=== PATIENT | male | born 1950 | race Caucasian/White ===

== ENCOUNTER 2017-07-31 14:11 | Day surgery (SDC) | payer OTHER ==
[2017-07-31] MEDS ORDERED: TRIAMCINOLONE ACETONIDE 200 MG/5 ML MDV IM ONE (15:34)
[2017-07-31] MEDS ORDERED: IOPAMIDOL (ISOVUE-M 300) 15 ML VIAL ONE (15:34)
== END 2017-07-31 16:10 | disposition home or self-care (01) ==
LOC: FIMAGING 14:11
PROVIDERS: ATTEND Family Medicine
PROC: 3E0R33Z Introduction of Anti-inflammatory into Spinal Canal, Percutaneous Approach (ICD-10-PCS; principal; 2017-07-31)
PROC: 3E0R3BZ Introduction of Anesthetic Agent into Spinal Canal, Percutaneous Approach (ICD-10-PCS; principal; 2017-07-31)
DX: M54.17 Radiculopathy, lumbosacral region (principal)
CPT/HCPCS: J3301; Q9967

== ENCOUNTER → 2017-10-03 | Outpatient (CLI) | payer OTHER ==
[~2017-10-03] MED LIST: GADOBUTROL 10 ML VIAL IVP ONE
== END ==
LOC: FIMAGING 16:06
PROVIDERS: ATTEND Neurological Surgery
DX: M51.27 Other intervertebral disc displacement, lumbosacral region (principal)
CPT/HCPCS: 72158; A9585

== ENCOUNTER 2017-10-24 07:19 | Inpatient (IN) | payer OTHER ==
[~2017-10-24 07:19] MED LIST changes: -GADOBUTROL 10 ML VIAL IVP ONE; +TRANEXAMIC ACID 1,000 MG in NS (SYRINGE) 50 ML IV ONE
[2017-10-24] MEDS ORDERED: CHLORHEXIDINE GLUC HIBICLENS 118 ML BTL TP ONE (07:28)
[2017-10-24] MEDS ORDERED: BUPIVACAINE 0.25% 30 ML SDV ONE (07:28)
[2017-10-24] MEDS ORDERED: THROMBIN (BOVINE) 5,000 UNIT VIAL TP ONE (07:29)
[2017-10-24] MEDS ORDERED: BACITRACIN 50,000 UNITS/10 ML SYR IRR ONE (07:29)
[2017-10-24] MEDS ORDERED: morphINE PF 5 MG/10 ML INJ IT ONE (07:38)
[2017-10-24] MEDS ORDERED: fentaNYL 100 MCG/2 ML INJ IT ONE (07:38)
[2017-10-24] MEDS ORDERED: ceFAZolin 2 GM/SWFI 2 GM/20 ML SYR IVP ONE (07:38)
[2017-10-24] MEDS ORDERED: GABAPENTIN 300 MG CAP PO ONE (07:38)
[2017-10-24] MEDS ORDERED: ACETAMINOPHEN 500 MG TAB PO ONE (07:38)
[2017-10-24] MEDS ORDERED: LIDOCAINE 1% 2 ML INJ ID PRN (07:40)
[2017-10-24] MEDS ORDERED: LR 1,000 ML IV ONE (07:40)
--- NOTE | 2017-10-24 09:17 | PDHPUP ---
History & Physical Update H&P update statement: This history and physical update is based on an assessment of the patient which was completed after admission or registration (within 24 hours), but prior to the surgery/procedure. H&P update: H&P reviewed & patient examined, no change in patient's condition since H&P completed
[2017-10-24] MEDS ORDERED: fentaNYL 100 MCG/2 ML INJ ONE (09:31)
[2017-10-24] MEDS ORDERED: REMIFENTANIL HCL 1 MG VIAL ONE (09:31)
[2017-10-24] MEDS ORDERED: PROPOFOL/EMULSION 500 MG/50 ML BOTTLE IV ONE (09:32)
[2017-10-24] MEDS ORDERED: PROPOFOL 200 MG/20 ML VIAL ONE (09:32)
[2017-10-24] MEDS ORDERED: MIDAZOLAM 2 MG/2 ML VIAL IVP ONE (09:37)
--- NOTE | 2017-10-24 09:41 | PDANEPAE ---
ANE History of Present Illness L5-S1 TLIF ANE Past Medical History - Cardiovascular History Hx Hypertension: Yes Hx Arrhythmias: No Hx Chest Pain: No Hx Coronary Artery / Peripheral Vascular Disease: No Hx CHF / Valvular Disease: No Hx Palpitations: No - Pulmonary History Hx COPD: No Hx Asthma/Reactive Airway Disease: No Hx Recent Upper Respiratory Infection: No Hx Oxygen in Use at Home: No Hx Sleep Apnea: No Sleep Apnea Screening Result - Last Documented: Positive - Neurologic History Hx Cerebrovascular Accident: No Hx Seizures: No Hx Dementia: No - Endocrine History Hx Diabetes: Yes Endocrine History Comment: type 2 - Renal History Hx Renal Disorders: Yes Renal History Comment: stage 3 kidney disease - Liver History Hx Hepatic Disorders: No - Neurological & Psychiatric Hx Hx Neurological and Psychiatric Disorders: Yes Neurological / Psychiatric History Comment: neuropathy - Cancer History Hx Cancer: No - Congenital Disorder History Hx Congenital Disorders: No - GI History Hx Gastrointestinal Disorders: No - Other Health History Other Health History: left ear hearing loss - Chronic Pain History Chronic Pain: Yes (left leg, bilat hip across buttocks) - Surgical History Prior Surgeries: umbilical hernia 09/08. 09/26/17 microdiscectomy ANE Review of Systems Review of systems is: negative Review of Systems: - Exercise capacity METS (RN): 6 METS ANE Patient History - Allergies Allergies/Adverse Reactions: ciprofloxacin [From Cipro] Allergy (Verified 10/24/17 07:46) - Home Medications Home medications: home medication list seen and reviewed Home Medications: Atorvastatin Calcium [Lipitor 40 mg (*)] 40 mg PO HS 07/24/17 [Last Taken ] Fenofibrate,Micronized [Fenofibrate] 134 mg PO DAILY 07/24/17 [Last Taken ] Glimepiride [Amaryl 2 MG (*)] 2 mg PO BID PRN 07/24/17 [Last Taken 10/23/17] Lisinopril [Zestril 10 mg (*)] 10 mg PO HS 07/24/17 [Last Taken 10/20/17] metFORMIN HCL [Glucophage 1000 mg] 1,000 mg PO BIDMEAL 07/24/17 [Last Taken 08/11 12:00] Aspirin [Aspirin 81mg (*)] 81 mg PO DAILY 10/17/17 [Last Taken 10/13/17] Cholecalciferol Vit D3 [Vitamin D3 (*)] 1,000 units PO DAILY 10/17/17 [Last Taken 10/17/17] Cyanocobalamin [Vitamin B12 (*)] 1,000 mcg PO DAILY 10/17/17 [Last Taken ] Gabapentin [Neurontin 300 MG (*)] 300 mg PO HS 10/17/17 [Last Taken 10/23/17] Herbals/Supplements -Info Only 1 ea PO DAILY 10/17/17 [Last Taken 10/17/17] Methocarbamol [Robaxin 750 mg (*)] 750 mg PO DAILY PRN 10/17/17 [Last Taken 08/11 21:30] [place]-3 Fatty Acids [Fish Oil 1000 mg (*)] 1,000 mg PO DAILY 10/17/17 [Last Taken 10/17/17] oxyCODONE/APAP 5/325 [Percocet 5/325 (*)] 1 - 2 tab PO Q6HRS PRN 10/17/17 [Last Taken 10/24/17 04:30] - NPO status NPO Since - Liquids (Date): 10/23/17 NPO Since - Liquids (Time): 21:30 NPO Since - Solids (Date): 10/23/17 NPO Since - Solids (Time): 18:00 - Anes Hx Anes Hx: no prior problems - Smoking Hx Smoking Status: Never smoked - Alcohol Use Alcohol Use: None - Family Anes Hx Family Hx Anesthesia Complications: none ANE Labs/Vital Signs - Vital Signs Blood Pressure: 130/96 Heart Rate: 97 Respiratory Rate: 16 O2 Sat (%): 95 Height: 180.34 cm Weight: 79.379 kg ANE Physical Exam - Airway Neck exam: FROM Mallampati Score: Class 1 Mouth exam: normal dental/mouth exam - Pulmonary Pulmonary: no respiratory distress - Cardiovascular Cardiovascular: regular rate and rhythym - ASA Status ASA Status: III ANE Anesthesia Plan Anesthesia Plan: general endotracheal anesthesia Lines/Monitors: additional IV
[2017-10-24] MEDS ORDERED: ROCURONIUM 50 MG/5 ML VIAL ONE (11:08)
[2017-10-24] MEDS ORDERED: ONDANSETRON 4 MG/2 ML VIAL ONE (11:08)
[2017-10-24] MEDS ORDERED: LIDOCAINE 2% 100 MG/5 ML SYR ONE (11:08)
[2017-10-24] MEDS ORDERED: PHENYLEPHRINE 10 MG/ML SDV ONE (11:51)
[2017-10-24] MEDS ORDERED: epHEDrine SULFATE 10 MG/ML SYR ONE (11:51)
--- NOTE | 2017-10-24 12:12 | POSTANESTH ---
Post Anesthetic Evaluation Cardiovascular Status: Normal, Stable Respiratory Status: Normal, Stable Level of Consciousness/Mental Status: Can Participate in Eval Pain Control: Adequate, Prn Tx Ordered Nausea/Vomiting Control: Adequate, Prn Tx Ordered Complications Possibly Related to Anesthesia: None Noted
[2017-10-24] MEDS ORDERED: HYDROmorphONE/DILAUDID 2 MG/ML INJ ONE (12:26)
[2017-10-24] MEDS ORDERED: PROMETHAZINE HCL 25 MG/ML INJ IVP PRN (12:43)
[2017-10-24] MEDS ORDERED: HYDROCODONE/APAP 5/325 TAB PO PRN (12:43)
[2017-10-24] MEDS ORDERED: ACETAMINOPHEN 500 MG TAB PO PRN (12:43)
[2017-10-24] MEDS ORDERED: DIAZEPAM 5 MG/ML 1 ML SYR IVP PRN (12:43)
[2017-10-24] MEDS ORDERED: oxyCODONE IR 5 MG TAB PO PRN ×2 (12:43→12:56)
[2017-10-24] MEDS ORDERED: HYDROmorphONE/DILAUDID 2 MG/ML INJ IVP PRN (12:43)
[2017-10-24] MEDS ORDERED: LABETALOL HCL 5 MG/ML 20 ML MDV IVP PRN (12:43)
[2017-10-24] MEDS ORDERED: NALOXONE HCL 0.4 MG/ML INJ IVP PRN ×2 (12:43→12:56)
[2017-10-24] MEDS ORDERED: fentaNYL 100 MCG/2 ML INJ IVP PRN (12:43)
[2017-10-24] MEDS ORDERED: ONDANSETRON 4 MG/2 ML VIAL IVP PRN ×2 (12:43→12:56)
[2017-10-24] MEDS ORDERED: LR 500 ML IV PRN (12:43)
[2017-10-24] MEDS ORDERED: ONDANSETRON DISINTEGRATING 4 MG TAB PO PRN (12:56)
[2017-10-24] MEDS ORDERED: diphenhydrAMINE 25 MG CAP PO PRN (12:56)
[2017-10-24] MEDS ORDERED: morphINE PCA 30 MG/30 ML PCA IV PRN (12:56)
[2017-10-24] MEDS ORDERED: BISACODYL 10 MG SUPP PR PRN (12:56)
[2017-10-24] MEDS ORDERED: METHOCARBAMOL 750 MG TAB PO PRN (12:56)
[2017-10-24] MEDS ORDERED: MAGNESIUM HYDROXIDE 30 ML UDCUP PO PRN (12:56)
[2017-10-24] MEDS ORDERED: LACTULOSE 20 GM/30 ML UDCUP PO PRN (12:56)
[2017-10-24] MEDS ORDERED: NS W/ 20 KCl/L 1,000 ML IV SCH (13:00)
--- NOTE | 2017-10-24 13:07 | SOAPPROG ---
SOAP Progress Note Assessment/Plan: Assessment: 67 yo M sp L5/S1 TLIF Plan: stable PT/OT to 3N x-rays in am lovenox starts 10/25 please call with neuro changes 10/24/17 13:03 Subjective: + back pain, no leg pain. Objective: Vital Signs Temp Pulse Resp BP Pulse Ox 36.9 C 97 16 130/96 H 95 10/24/17 08:52 10/24/17 09:40 10/24/17 09:40 10/24/17 09:40 10/24/17 09:40 somnolent PERRL, EOMI 5/5 + light touch ICD10 Worksheet Patient Problems: Problems Problem Status Onset Fusion of spine of lumbar region Acute - ICD10 Problem Qualifiers (1) Fusion of spine of lumbar region
--- NOTE | 2017-10-24 13:28 | GOP ---
[f rep st] OPERATIVE REPORT DATE OF OPERATION: 10/24/2017 SURGEON: Guzman Manuel MD NEUROSURGEON: Guzman Manuel M.D. TRACK MOVING MACHINE OPERATOR: KANDICE Ruvalcaba. ANESTHESIA: General endotracheal. PREOPERATIVE DIAGNOSIS: 1. Recurrent left L5-S1 disk herniation with intractable low back pain and left greater than right lower extremity radicular symptoms. 2. Failed conservative care. Intractable pain. POSTOPERATIVE DIAGNOSIS: 1. Recurrent left L5-S1 disk herniation with intractable low back pain and left greater than right lower extremity radicular symptoms. 2. Failed conservative care. Intractable pain. PROCEDURE PERFORMED: 1. Mini open exposure for left-sided far lateral transfacet, transpedicular decompression at the L5-S1 level with L5-S1 posterior nonsegmental (pedicle screw) fixation and posterolateral fusion with local autograft, bone morphogenic protein and morselized allograft. 2. L5-S1 posterior/transforaminal lumbar interbody fusion with 2 structural PEEK interbody spacers, local autograft and bone morphogenic protein and morselized allograft. 3. Use of intraoperative microscopy, fluoroscopy and computer volumetric stereotactic navigation with intraoperative neurophysiologic testing. 4. Injection of intrathecal narcotic analgesics and subcutaneous and intramuscular local anesthesia for postoperative pain control. FINDINGS: ESTIMATED BLOOD LOSS: 75 cc. DESCRIPTION OF PROCEDURE: The patient was taken to the operating room and placed in the prone position on the Gurwinder table. The lumbosacral area was prepped and draped in a sterile fashion. After fluoroscopic localization of the correct levels, the subcutaneous and intramuscular tissues were infiltrated with local anesthesia. A midline linear incision was then created over the L5- S1 spinous processes. This was carried down to the fascial layer, which was then incised using monopolar electrocautery and carried in a subperiosteal plane along the spinous processes and lamina bilaterally. Intraoperative fluoroscopy was again utilized to verify the correct levels. Following this, a redo left-sided posterior hemilaminectomy defect was created along with a facetectomy for an extensive decompression of the L5 and S1 nerve roots. There was a very large free fragment disk herniation that was stuck to the dura and removed in piecemeal. There was end plate on some of the disk and it appeared that he completely blew out his L5-S1 disk and most of it was pressing against the thecal sac and L5 and S1 nerve roots. After an extensive decompression, the [employer] neuronavigational system was brought in and using computer volumetric stereotactic navigation, pedicle screws were placed bilaterally at L5 and S1. Each individual screw was tested neurophysiologically with monopolar electrostimulation and interpretation of the potentials by the surgeon. Rods were then placed and secured under distraction at which time a complete diskectomy was performed with preparation of the endplates and placement of 2 structural PEEK interbody spacers, local autograft and bone morphogenic protein and morselized allograft for an L5-S1 posterior/transforaminal lumbar interbody fusion. The screw and juliette system were then placed compression in order to facilitate bony union and to minimize the potential for posterior graft migration. 200 mcg of Duramorph along with 50 mcg of fentanyl were then injected intrathecally. The remaining lamina and facet joint on the right were extensively decorticated, and the residual local autograft along with bone morphogenic protein and morselized autograft were placed out laterally for posterolateral fusion at the L5-S1 level. After reverification of good position of the screws, rods and interbody spacers using biplanar fluoroscopy, a drain was placed. The subcutaneous and intramuscular tissues were reinfiltrated with local anesthesia. 200 mcg of Duramorph along with 50 mcg of fentanyl were injected intrathecally and the wound was closed in a layered fashion using interrupted Vicryl sutures followed by Steri-Strips on the skin. COMPLICATIONS: None. INDICATIONS FOR PROCEDURE: The patient is a 67-year-old male with intractable low back pain and left greater than right lower extremity radicular discomfort secondary to a recurrent disk herniation and severe disk space collapse and neural foraminal encroachment. He had a microdiskectomy recently and had excellent pain relief for a few days, but then reherniated with a very large disk fragment on MRI. He also has contralateral symptoms due to the disk space height collapse and neural foraminal encroachment and required extensive redo decompression and elevation of the disk height with interbody spacers and screws and rods. DISPOSITION: The patient is currently in the process of being repositioned for extubation. /[id number]/MODL MTDD
--- NOTE | 2017-10-24 14:53 | PDMN ---
Medical Necessity Medical necessity: Patient meets inpatient criteria per PA note and [facility] S-820 Lumbar Fusion - 3 days postop - (CPT 61045 / Medicare inpatient-only surgery.)
[2017-10-24] MEDS: ACETAMINOPHEN 500 MG TAB PO SCH ×2 (17:23→22:33)
[2017-10-24] MEDS: ceFAZolin 2 GM/SWFI 2 GM/20 ML SYR IVP SCH (17:23)
[2017-10-24] MEDS: GABAPENTIN 300 MG CAP PO SCH ×2 (17:24→22:33)
[2017-10-24] MEDS: POLYETHYLENE GLYCOL 3350 17 GM PKT PO SCH ×2 (17:25→20:55)
[2017-10-24] MEDS ORDERED: NON-FORMULARY NEW DRUG (Metformin Hcl [Glucophage 1000 Mg] 1,000 MG) PO SCH (18:00)
[2017-10-24] MEDS ORDERED: GLIMEPIRIDE 2 MG TAB PO PRN (18:00)
[2017-10-24] MEDS ORDERED: GLIMEPIRIDE 2 MG TAB PO SCH (18:45)
[2017-10-24] MEDS: FAMOTIDINE 20 MG TAB PO SCH (20:53)
[2017-10-24] MEDS: SENNOSIDES/DOCUSATE SODIUM TAB PO SCH (20:56)
[2017-10-24] MEDS ORDERED: LISINOPRIL 10 MG TAB PO SCH (21:00)
[2017-10-24] MEDS ORDERED: morphINE SR 30 MG TAB PO SCH (21:00)
[2017-10-24] MEDS ORDERED: ATORVASTATIN CALCIUM 40 MG TAB PO SCH (21:00)
[2017-10-25] MEDS: ceFAZolin 2 GM/SWFI 2 GM/20 ML SYR IVP SCH (01:46)
[2017-10-25 05:27] LABS: PLATELET COUNT 183 10^3/uL (150-400)
[2017-10-25] MEDS: GABAPENTIN 300 MG CAP PO SCH ×2 (05:42→14:44)
[2017-10-25] MEDS: ACETAMINOPHEN 500 MG TAB PO SCH ×2 (06:19→14:44)
[2017-10-25] MEDS ORDERED: ENOXAPARIN 40 MG/0.4 ML SYR SC SCH (09:00)
[2017-10-25] MEDS ORDERED: FENOFIBRATE MICRONIZED 134 MG PO SCH (09:00)
[2017-10-25] MEDS: FAMOTIDINE 20 MG TAB PO SCH (09:08)
[2017-10-25] MEDS: SENNOSIDES/DOCUSATE SODIUM TAB PO SCH (09:09)
[2017-10-25] MEDS: POLYETHYLENE GLYCOL 3350 17 GM PKT PO SCH ×2 (09:09→17:56)
--- NOTE | 2017-10-25 09:38 | NEUSURGPN ---
Assessment/Plan: Assessment: 67 yo M sp L5/S1 TLIF POD1 Plan: Continue NIDHI drain PT/OT Post op xrays pending DVT prophx: TEDs, SCDs, lovenox Optimize pain management please call with neuro changes Discussed with Dr. Bach Subjective: Back pain tolerable with medications, denies any new leg pain, numbness, tingling or weakness. - Physician Discussed Patient with : [facility] Physical Exam - Vitals, I&O, Labs I and O 10/24/17 10/25/17 10/26/17 05:59 05:59 05:59 Intake Total 1950 Output Total 515 50 Balance 1435 -50 Weight 79.379 kg Intake: Oral (ml) 650 IV Intake (ml) 1300 Output: Urine (ml) 300 Urinal 300 Estimated Blood Loss (ml) 120 NIDHI Drain Output (ml) 95 50 Left Back Gurwinder Glover 95 50 Other: Number of Voids Toilet 1 Bladder Scan Volume (ml) Toilet 224 Vital Signs Temp Pulse Resp BP Pulse Ox 36.4 C 98 16 98/59 L 95 10/25/17 07:59 10/25/17 07:59 10/25/17 07:59 10/25/17 07:59 10/25/17 07:59 Laboratory Results 10/25/17 04:19 10/25/17 04:19 ICD10 Worksheet Patient Problems: Problems Problem Status Onset Fusion of spine of lumbar region Acute
[2017-10-25] MEDS ORDERED: metFORMIN HCL 500 MG TAB PO SCH (09:45)
--- NOTE | 2017-10-25 14:12 | ASMTCMCOM ---
CM Note CM Note Notes: Pt s/p L5/S1 TLIF. PT/OT rec home. Pt resides w spouse and adult children. No CM d/c needs anticipated at this time. CM available for changes/needs. Date Signed: 10/25/2017 02:11 PM Electronically Signed By:SUJEY Gunn
[2017-10-25] MEDS ORDERED: NS 500 ML IV ONE (15:00)
[2017-10-25] MEDS ORDERED: NS BOLUS 500 ML (Wide open) IV ONE (15:00)
[2017-10-25 15:16] VITALS: BP 97/62
[2017-10-25] MEDS ORDERED: GLIMEPIRIDE 2 MG TAB PO PRN (18:00)
== END 2017-10-25 17:46 | disposition home or self-care (01) | DRG 460 ==
LOC: F3N 07:19
PROVIDERS: ADMIT Neurological Surgery; ATTEND Neurological Surgery
PROC: 3E0U0GB Introduction of Recombinant Bone Morphogenetic Protein into Joints, Open Approach (ICD-10-PCS; principal; 2017-10-24 09:15)
PROC: 0SG30AJ Fusion of Lumbosacral Joint with Interbody Fusion Device, Posterior Approach, Anterior Column, Open Approach (ICD-10-PCS; principal; 2017-10-24 09:15)
PROC: 0SB40ZZ Excision of Lumbosacral Disc, Open Approach (ICD-10-PCS; principal; 2017-10-24 09:15)
PROC: 01NB0ZZ Release Lumbar Nerve, Open Approach (ICD-10-PCS; principal; 2017-10-24 09:15)
DX: M51.27 Other intervertebral disc displacement, lumbosacral region (principal)
CPT/HCPCS: 97116-GP; 97161-GP; 97165-GO; C1713; C1762; J0171; J0690; J1170; J1650; J2001; J2250; J2274; J2370; J2405; J2704; J3010

== ENCOUNTER 2018-06-21 10:59 | Emergency (ER) | payer OTHER ==
--- NOTE | 2018-06-21 12:32 | EDPHY ---
HPI/HX/ROS/PE/MDM Narrative: CHIEF COMPLAINT: Cough, fever HPI: The patient is a 67-year-old male with no significant past medical history. He reports cough, fever and body aches for the last approximately 5 days. He recently returned from a trip to see family in [place] and the child had a similar illness there. He presents with his who has the same symptoms as well. He denies severe headache or abdominal pain. REVIEW OF SYSTEMS: Aside from elements discussed in the HPI, a comprehensive 10-point review of systems was reviewed and is negative. PMH: None significant per patient. SOCIAL HISTORY: . Denies drug abuse. PHYSICAL EXAM: General:Patient is alert, in no acute distress. Well-appearing. ENT:Eyes are normal to inspection. ENT inspection normal. Neck: Normal inspection. Full range of motion. No meningismus. Respiratory:No respiratory distress. Breath sounds normal bilaterally. Cardiovascular: Regular rate and rhythm. Strong peripheral pulses. Normal cap refill. Abdomen:The abdomen is nontender to palpation. There are no peritoneal signs. There are normal bowel sounds. Back: Normal to inspection. No tenderness to palpation. Skin: Normal color. No rash. Warm and dry. Extremities: Normal appearance. Full range of motion. Neuro: Oriented x3. Normal motor function. Normal sensory function. ED Course: Influenza swab reveals positive flu a for both the patient and his who was also patient here MDM: This is a 67-year-old male who presents with signs and symptoms consistent with influenza a, which she indeed test positive for. I see no evidence of meningitis, pneumonia, hypoxia. The patient is well-appearing and comfortable with plan for outpatient management. Given that he is over the age of 65, I will prescribe Tamiflu. - Data Points Laboratory Results: 06/21/18 11:35 Nasal Influenza A PCR FLU A DETECTED H (NEGATIVE) Nasal Influenza B PCR NEGATIVE FOR FLU B (NEGATIVE) General Time Seen by Provider: 06/21/18 12:32 Initial Vital Signs: Initial Vital Signs Temperature (C) 36.9 C 06/21/18 11:06 Heart Rate 89 06/21/18 11:06 Respiratory Rate 18 06/21/18 11:06 Blood Pressure 120/81 H 06/21/18 11:06 O2 Sat (%) 94 06/21/18 11:06 O2 Delivery Mode Room Air Allergies/Adverse Reactions: ciprofloxacin [From Cipro] Allergy (Verified 10/24/17 07:46) Home Medications: Medication Instructions Recorded Atorvastatin Calcium [Lipitor 40 40 mg PO HS 07/24/17 mg (*)] Fenofibrate,Micronized 134 mg PO DAILY 07/24/17 [Fenofibrate] Glimepiride [Amaryl 2 MG (*)] 2 mg PO DAILY@18 07/24/17 Lisinopril [Zestril 10 mg (*)] 10 mg PO HS 07/24/17 metFORMIN HCL [Glucophage 1000 mg] 1,000 mg PO BIDMEAL 07/24/17 Cholecalciferol Vit D3 [Vitamin D3 1,000 units PO DAILY 10/17/17 (*)] Cyanocobalamin [Vitamin B12 (*)] 1,000 mcg PO DAILY 10/17/17 Gabapentin [Neurontin 300 MG (*)] 300 mg PO HS 10/17/17 Methocarbamol [Robaxin 750 mg (*)] 750 mg PO DAILY PRN 10/17/17 oxyCODONE/APAP 5/325 [Percocet 1 - 2 tab PO Q6HRS PRN 10/17/17 5/325 (*)] Glimepiride [Amaryl 2 MG (*)] 2 mg PO DAILY@18 PRN 10/24/17 Acetaminophen [Tylenol ES 500 mg 1,000 mg PO Q8HRS tab 10/25/17 (*)] Methocarbamol [Robaxin 750 mg (*)] 750 mg PO QID PRN #60 tab 10/25/17 Sennosides/Docusate Sodium 1 - 2 tab PO BID tab 10/25/17 [Senokot-S] morphINE SR [MS Contin/Oramorph SR 30 mg PO BID #60 tab 10/25/17 30 mg (*)] oxyCODONE IR [Oxycodone Ir (*)] 5 - 10 mg PO Q4HRS PRN #60 tab 10/25/17 Oseltamivir Phosphate [Tamiflu 75 75 mg PO BID 5 Days cap 06/21/18 mg (RX)] Departure - Departure Disposition: Home, Routine, Self-Care Clinical Impression: Influenza A Condition: Good Instructions: Influenza (ED) Additional Instructions: 1. Increase fluid intake. 2. Use Tylenol and ibuprofen as directed for pain and fever over the next few days. 3. Take Tamiflu as prescribed. 4. Cover your cough and practice good hand hygiene. You are contagious currently and can continue to be contagious even several days after your symptoms have resolved. Adult Pain & Fever Control: We recommend Acetaminophen (Tylenol) and Ibuprofen (Motrin,Advil) for pain and fever control. When fever is high or pain severe, both drugs can be used at the same time, but at different intervals. Please note the time differences. Your dose is: Acetaminophen 650mg every 4 to 6 hours Ibuprofen 600mg every 8 hours with food Note: do not take Acetaminophen with Hydrocodone (Vicodin, Lortab) or Oxycodone (Percocet). These medications also contain Acetaminophen. No more than 3000mg of Acetaminophen should be taken in 24 hours (for an adult). Referrals: Raoul Alcantara MD [Primary Care Provider] - As per Instructions Prescriptions: Oseltamivir Phosphate [Tamiflu 75 mg (RX)] 75 mg PO BID 5 Days cap
[2018-06-21 12:43] VITALS: BP 119/67
== END 2018-06-21 12:43 | disposition home or self-care (01) ==
DX: J10.1 Influenza due to other identified influenza virus with other respiratory manifestations (principal)